=== PATIENT | female | born 1995 | race American Indian/Alaskan Native ===

== ENCOUNTER 2022-01-25 15:31 | Outpatient (CLI) | payer OTHER ==
[2022-01-25] MEDS ORDERED: LACTATED RINGERS 1,000 ML IV ONE (16:01)
[2022-01-25 17:05] LABS: Bacteria,Urine 1+ /HPF (Negative); Mucus,Urine FEW /HPF
[2022-01-25 17:14] LABS: Color,Urine Straw (Yellow)
[2022-01-25 20:15] VITALS: BP 111/69
== END 2022-01-25 20:30 | disposition left against medical advice (07) ==
LOC: TRG 15:31 → APU 15:41 → TRG 20:30
PROVIDERS: ATTEND Obstetrics & Gynecology
DX: O26.893 Other specified pregnancy related conditions, third trimester (principal); M79.89 Other specified soft tissue disorders; Z3A.31 31 weeks gestation of pregnancy
CPT/HCPCS: 59025; 81001